=== PATIENT | male | born 1990 | race African-American/Black ===

== ENCOUNTER 2025-02-26 22:44 | Emergency (ER) | payer SELFPAY ==
[~2025-02-26] VITALS: Ht 180.3 cm; Wt 92.0 kg
[2025-02-26 22:47] VITALS: TEMP 36.8; O2SAT 100
[2025-02-26] MEDS ORDERED: VISCOUS LIDOCAINE 2% 15 ML UDC MM ONE (23:30)
[2025-02-26] MEDS ORDERED: KETOROLAC 15MG/ML VIAL IV ONE (23:30)
[2025-02-26] MEDS ORDERED: MAGNESIUM/ALUMINUM HYDROXIDE/SIMETHICONE 30ML UDC PO ONE (23:30)
[2025-02-27] MEDS ORDERED: ONDA4TAB50 MT (00:21)
[2025-02-27] MEDS ORDERED: IBUP-2029 MT (00:21)
[2025-02-27] MEDS ORDERED: MAG355OR21 MT (00:21)
[2025-02-27 01:13] LABS: BASOPHILS % 0.4 % (0.0-2.0); EOSINOPHILS % 1.9 % (0.0-5.0); HEMATOCRIT. 34.7 % (42.0-52.0); HEMOGLOBIN. 11.7 g/dL (14.0-18.0); LYMPHOCYTES % 50.7 % (20.0-50.0); MEAN PLATELET VOLUME 7.4 fl (7.4-10.4); MONOCYTES % 8.7 % (2.0-8.0); NEUTROPHILS % 38.3 % (40.0-76.0); PLATELET 308 x1000/uL (130-400); RED BLOOD CELL COUNT 4.44 mill/uL (4.7-6.1); RED CELL DISTRIBUTION WIDTH 15.0 % (11.6-14.6)
[2025-02-27 01:21] LABS: CREATININE 1.1 mg/dL (0.6-1.3)
[2025-02-27 01:22] LABS: ETHANOL BLOOD < 10 mg/dL (<10); UREA NITROGEN BLOOD 16 mg/dL (9-23)
[2025-02-27 01:23] LABS: ASPARTATE AMINOTRANSFERASE 32 IU/L (<34); BILIRUBIN DIRECT 0.2 mg/dL (<=3.0)
[2025-02-27] MEDS: SODIUM CHLORIDE 0.9% 1,000 ML IV ONE (01:23)
[2025-02-27 01:24] LABS: BILIRUBIN TOTAL 0.7 mg/dL (0.1-1.0); PROTEIN TOTAL 6.2 g/dL (6.0-8.3)
[2025-02-27] MEDS: ONDANSETRON HCL 4MG/2ML INJ IV NR (01:26)
[2025-02-27] MEDS: SODIUM CHLORIDE 0.9% 1,000 ML IV NR (01:32)
[2025-02-27] MEDS: KETOROLAC 15MG/ML VIAL IV SCH (01:37)
[2025-02-27] MEDS: MAGNESIUM/ALUMINUM HYDROXIDE/SIMETHICONE 30ML UDC PO SCH (01:38)
[2025-02-27] MEDS: VISCOUS LIDOCAINE 2% 15 ML UDC MM SCH (01:38)
[2025-02-27 04:25] VITALS: BP 131/76; PULSE 67; RESP 16; O2SAT 100
== END 2025-02-27 04:26 | disposition home or self-care (01) ==
LOC: ER 22:44
DX: A08.4 Viral intestinal infection, unspecified (principal); E78.00 Pure hypercholesterolemia, unspecified
CPT/HCPCS: 36415; 76705; 99285; 80076; 80048; 80320; 83690; 85025; 74176; 96361; 96374; 96375; J7030; J1885; J2405; G0480

== ENCOUNTER 2025-05-16 18:15 | Emergency (ER) | payer MEDICAID ==
[~2025-05-16] VITALS: Ht 177.8 cm; Wt 82.0 kg
[~2025-05-16 18:15] MED LIST: IBUP-1455 MT; MAG355OR21 MT; ONDA4TAB50 MT
[2025-05-16 18:19] VITALS: O2SAT 98
[2025-05-16] MEDS: ACTIVATED CHARCOAL 50 G/240 ML TUBE PO ONE (19:17)
[2025-05-16 19:22] LABS: *AMPHETAMINES SCREEN URINE NEGATIVE (NEGATIVE); *BARBITURATES SCREEN URINE NEGATIVE (NEGATIVE); *BENZODIAZEPINES SCREEN URINE NEGATIVE (NEGATIVE); *COCAINE SCREEN URINE PRESUMPTIVE POSITIVE (NEGATIVE); CANNABINOID URINE SCREEN PRESUMPTIVE POSITIVE (NEGATIVE); ECSTASY MDMA SCREEN URINE NEGATIVE (NEGATIVE); METHADONE URINE SCREEN NEGATIVE (NEGATIVE); OPIATES URINE SCREEN NEGATIVE (NEGATIVE); PHENCYCLIDINE URINE SCREEN NEGATIVE (NEGATIVE)
[2025-05-16 19:43] LABS: BASOPHILS % 0.8 % (0.0-2.0); EOSINOPHILS % 0.3 % (0.0-5.0); HEMATOCRIT. 37.5 % (42.0-52.0); HEMOGLOBIN. 12.0 g/dL (14.0-18.0); LYMPHOCYTES % 38.8 % (20.0-50.0); MEAN PLATELET VOLUME 7.5 fl (7.4-10.4); MONOCYTES % 5.0 % (2.0-8.0); NEUTROPHILS % 55.1 % (40.0-76.0); PLATELET 436 x1000/uL (130-400); RED BLOOD CELL COUNT 4.50 mill/uL (4.7-6.1); RED CELL DISTRIBUTION WIDTH 18.7 % (11.6-14.6)
[2025-05-16 19:49] LABS: CLARITY URINE CLEAR (CLEAR); COLOR URINE YELLOW (YELLOW); GLUCOSE URINE NEGATIVE (NEGATIVE); KETONES URINE TRACE (NEGATIVE); NITRITE URINE NEGATIVE (NEGATIVE); OCCULT BLOOD URINE NEGATIVE (NEGATIVE); PH URINE 6.0 (4.5-8.0); PROTEIN URINE NEGATIVE (NEGATIVE); SPECIFIC GRAVITY URINE 1.012 (1.005-1.030); UROBILINOGEN URINE 0.2 E.U./dL (0.2-1.0)
[2025-05-16 19:50] LABS: LEUKOCYTE ESTERASE URINE NEGATIVE (NEGATIVE)
[2025-05-16 20:01] LABS: CREATININE 0.9 mg/dL (0.6-1.3); ETHANOL BLOOD 279 mg/dL (<10); UREA NITROGEN BLOOD 8 mg/dL (9-23)
[2025-05-16] MEDS: SODIUM CHLORIDE 0.9% 1,000 ML IV ONE (20:45)
[2025-05-17 01:10] LABS: ETHANOL BLOOD 187 mg/dL (<10)
[2025-05-17 23:11] LABS: ETHANOL BLOOD < 10 mg/dL (<10)
[2025-05-18 05:47] VITALS: BP 118/84; PULSE 88; RESP 16; TEMP 36.5; O2SAT 99
== END 2025-05-18 05:58 ==
LOC: ER 18:15
DX: R45.851 Suicidal ideations (principal); F10.229 Alcohol dependence with intoxication, unspecified; F14.10 Cocaine abuse, uncomplicated; F12.10 Cannabis abuse, uncomplicated; F15.90 Other stimulant use, unspecified, uncomplicated; E78.00 Pure hypercholesterolemia, unspecified; Z87.891 Personal history of nicotine dependence; Z91.010 Allergy to peanuts; Z79.899 Other long term (current) drug therapy; Z20.822 Contact with and (suspected) exposure to COVID-19; Y90.8 Blood alcohol level of 240 mg/100 ml or more
CPT/HCPCS: 80305; 80048; 81003; 80307; 80329; 80320; 82550; 85025; 36415; 93005; 99285; 87426; J7030; G0480